=== PATIENT | male | born 1960 | race Two or more races ===

== ENCOUNTER 2017-11-03 09:43 | Inpatient (IN) | payer OTHER ==
[~2017-11-03] VITALS: Ht 185.4 cm; Wt 95.3 kg
[~2017-11-03 09:43] MED LIST: 1ST TIER UNILE1 EAC1 MC; ASPIR 8181 MG PO; CEFDINIR300 MG PO; CIPRO500 MG PO; COZAAR25 MG PO; GABAPENTIN600 MG PO; GLUCOMETERSTRIP; LEVAQUIN750 MG PO; Lantus 1000 U/10 ML SUBCUTANEO; METFORMIN HCL1000 M1 PO; PERCOCET 5-3251 EACH PO; SENNA-DOCUSATE1 EACH PO; [UNRECOGNIZED DRUG - OTHER] MC
== END 2017-11-21 16:39 | DRG 240 ==
LOC: ER 09:43 → SEC-K 16:38 → MEDJ 16:38
PROVIDERS: Specialist
PROC: BQ3LZZZ Magnetic Resonance Imaging (MRI) of Right Foot (ICD-10-PCS; 2017-11-03)
PROC: 8E0ZXY6 Isolation (ICD-10-PCS; 2017-11-05)
PROC: B44HZZZ Ultrasonography of Bilateral Lower Extremity Arteries (ICD-10-PCS; 2017-11-08)
PROC: 0Y6H0Z1 Detachment at Right Lower Leg, High, Open Approach (ICD-10-PCS; principal; 2017-11-10 12:15)
DX: E11.52 Type 2 diabetes mellitus with diabetic peripheral angiopathy with gangrene (principal); L02.611 Cutaneous abscess of right foot; L03.115 Cellulitis of right lower limb; T87.43 Infection of amputation stump, right lower extremity; M86.671 Other chronic osteomyelitis, right ankle and foot; I96 Gangrene, not elsewhere classified; L97.518 Non-pressure chronic ulcer of other part of right foot with other specified severity; E11.42 Type 2 diabetes mellitus with diabetic polyneuropathy; E11.65 Type 2 diabetes mellitus with hyperglycemia; K59.09 Other constipation; I10 Essential (primary) hypertension; G54.6 Phantom limb syndrome with pain; Y83.5 Amputation of limb(s) as the cause of abnormal reaction of the patient, or of later complication, without mention of misadventure at the time of the procedure; Y92.098 Other place in other non-institutional residence as the place of occurrence of the external cause; E11.69 Type 2 diabetes mellitus with other specified complication; E11.621 Type 2 diabetes mellitus with foot ulcer
CPT/HCPCS: 73723

== ENCOUNTER 2018-07-18 13:57 | Emergency (ER) | payer OTHER ==
[~2018-07-18] VITALS: Ht 185.4 cm; Wt 88.5 kg
[2018-07-18] MEDS ORDERED: VITAMIN D1000 UNI1 PO (14:49)
[2018-07-18] MEDS ORDERED: ENTRESTO 24 MG1 EACH PO (14:49)
[2018-07-18] MEDS ORDERED: CARVEDILOL3.125 MG PO (14:50)
[2018-07-18] MEDS ORDERED: XARELTO1 EACH PO (14:50)
[2018-07-18] MEDS ORDERED: CILOSTAZOL100 MG PO (14:51)
[2018-07-18] MEDS ORDERED: ISOSORBIDE DINI30 MG PO (14:51)
[2018-07-18] MEDS ORDERED: ASPIRIN81 MG PO (14:51)
[2018-07-18] MEDS ORDERED: TRADJENTA5 MG PO (14:52)
[2018-07-18] MEDS ORDERED: KETO10TA2 PO (23:17)
[2018-07-18] MEDS ORDERED: LEVAQUIN750 MG PO (23:21)
== END 2018-07-18 23:53 | disposition home or self-care (01) ==
LOC: ER 13:57
DX: M79.675 Pain in left toe(s) (principal); L08.89 Other specified local infections of the skin and subcutaneous tissue; B95.7 Other staphylococcus as the cause of diseases classified elsewhere